=== PATIENT | male | born 1950 | race African-American/Black ===

== ENCOUNTER 2020-03-08 06:46 | Outpatient (CLI) | payer MEDICARE, OTHER ==
[2020-03-08 11:33] LABS: Bilirubin Neg (Negative); Blood, Urine Negative (Negative); Glucose, Urine (Dipstick) Normal (Negative); Ketone, Urine Negative (Negative); Leukocyte Negative (Negative); Nitrite Negative (Negative); Protein, Urine (Dipstick) 15 mg/dl (Neg-Trace); Specific Gravity, Urine 1.015 (1.002-1.036); Urobilinogen Normal mg/dL (Less than 2)
[2020-03-08 11:34] LABS: Mean Corpuscular HGB CONC 31.1 G/DL (32.0-36.0); Mean Corpuscular Hemoglobin 25.5 PG (27.0-33.0); Platelet Count 178 10x3/uL (130-400); RBC Distribution Width 14.3 % (11.5-14.5); White Blood Cell (WBC) Count 4.4 10x3/uL (4.5-11.0)
[2020-03-08 11:35] LABS: Clarity Clear (Clear)
[2020-03-08 11:39] LABS: Bacteria/HPF None Seen HPF (None Seen); RBC/HPF 0-3 HPF (0-3); Squamous Epithelial None Seen HPF (0-3); WBC/HPF None Seen HPF (0-3)
[2020-03-08 11:42] LABS: INR-International Normal Ratio 1.1; PTT 30.2 sec (22.0-33.0); Prothrombin Time 11.2 sec (9.5-12.1)
[2020-03-08 12:22] LABS: Anion Gap 13 mmol/L (10-20); BUN (Urea Nitrogen) 10 mg/dL (8.4-25.7); Calc. Creatinine Clearance 0 mL/min (70-130); Calcium 8.9 mg/dL (7.8-10.44); Carbon Dioxide 25 mmol/L (23-31); Chloride 107 mmol/L (98-107); Estimated GFR-MDRD Greater than 90; Glucose 99 mg/dL (80-115); Potassium 4.3 mmol/L (3.5-5.1); Sodium 141 mmol/L (136-145)
--- NOTE | 2020-03-08 13:18 | RAD ---
PA AND LATERAL CHEST: Date: 03/08/2020 HISTORY: Preop. FINDINGS: Heart size and mediastinum are within normal limits. Lungs are clear of infiltrates. There are mild a rthritic changes of the spine. IMPRESSION: No active intrathoracic disease. POS: AYAKA
--- NOTE | 2020-03-08 21:06 | EKG ---
Test Reason : Blood Pressure : / mmHG Vent. Rate : 054 BPM Atrial Rate : 054 BPM P-R Int : 184 ms QRS Dur : 096 ms QT Int : 382 ms P-R-T Axes : 021 052 079 degrees QTc Int : 362 ms Sinus bradycardia Nonspecific T wave abnormality Abnormal ECG No previous ECGs available Confirmed by Luis Eduardo SHERWOOD ([id number]) on 03/08/2020 9:05:54 PM Referred By: SAMMI Confirmed By:Luis Eduardo SHERWOOD
[2020-03-09 12:09] LABS: SARS-CoV-2 MS2 Positive; SARS-CoV-2 N Gene Negative; SARS-CoV-2 S Gene Negative; SARS-CoV-2 by NAA Not Detected (NotDetected); SARS-CoV-2 orf1ab Negative
== END 2020-03-08 06:47 | disposition home or self-care (01) ==
LOC: LABBT 06:46
PROVIDERS: ATTEND Urology
DX: Z01.818 Encounter for other preprocedural examination (principal); R97.20 Elevated prostate specific antigen [PSA]; N40.0 Benign prostatic hyperplasia without lower urinary tract symptoms; N52.01 Erectile dysfunction due to arterial insufficiency; I11.9 Hypertensive heart disease without heart failure; Z20.828 Contact with and (suspected) exposure to other viral communicable diseases
CPT/HCPCS: 71046; 80048; 81001; 85027; 85610; 85730; 87086; 93005; U0003; 87635; 93010

== ENCOUNTER 2020-03-11 05:45 | Day surgery (SDC) | payer MEDICARE ==
[2020-03-10 09:55] VITALS: BMI 35.2
[2020-03-11] MEDS ORDERED: cefTRIAXone\\ROCEPHIN 2 GM VIAL ONE (06:33)
[2020-03-11] MEDS ORDERED: Sodium Chloride 0.9% 100 ML ONE (06:33)
[2020-03-11] MEDS ORDERED: Lidocaine 1% (PF) 30 ML VIAL ONE (06:36)
[2020-03-11] MEDS ORDERED: PROPOFOL 40 ML ONE (06:46)
[2020-03-11] MEDS ORDERED: Fentanyl 100 MCG/2 ML VIAL ONE (06:46)
[2020-03-11] MEDS ORDERED: Lidocaine 2% PF 5 ML VIAL ONE (06:47)
--- NOTE | 2020-03-11 19:38 | OP ---
DATE OF PROCEDURE: 03/11/2020 SERVICE: Urology. PREOPERATIVE DIAGNOSIS: Elevated PSA. POSTOPERATIVE DIAGNOSES: Elevated PSA. PROCEDURE PERFORMED: MRI fusion, transrectal ultrasound-guided biopsy. INDICATIONS FOR PROCEDURE: Mr. Rosenthal is a 70-year-old black male who has history of an elevated PSA. He had undergone a previous TRUS biopsy which was negative, but his prostate was extremely large. His PSA subsequently marleny, so we performed an MRI of the prostate, which demonstrated a BI-RADS 4 lesion at the right anterior prostate. We have now elected to undergo targeted biopsies using the UroNav system. Risks and benefits were discussed and he has agreed to proceed forward. DESCRIPTION OF PROCEDURE: After identification of armband and verification of consent, patient was brought back to the operating room, where he underwent a total intravenous anesthesia. He was then left in the left lateral decubitus position and positioned for the UroNav system. A transrectal ultrasound probe was introduced at the anal verge and the fusion process was carried out in a standard fashion using the UroNav system to fuse the prostate imaging with the MRI imaging. Once 3D reconstructive models were completed, targeted biopsies were then performed x6 in the area of concern, which was at the mid gland right anterior prostate. This was done in a cross-perez fashion to try and maximize likelihood of biopsying that concerning area. Standard biopsies were then taken in the usual sextant fashion for a total of 12 biopsies in that fashion. Ultrasound measurements demonstrated a length of approximately 5.6 cm, width of approximately 6.5 cm, and height of approximately 4.7 cm for a volume of around 91 mL. Upon completion, the ultrasound probe was removed. There was only a mild amount of bleeding. The patient was returned back to the supine position, awakened, and taken to Day Stay for recovery in stable condition. COMPLICATIONS: None. ESTIMATED BLOOD LOSS: Minimal. RETAINED TUBES AND DRAINS: None. SPECIMENS: Transrectal ultrasound-guided biopsies x12 in a standard fashion, 6 for targeted lesions. DISPOSITION: Patient will be discharged home and follow up with me in approximately 1 to 2 weeks for biopsy results. Job ID: [id number]
== END 2020-03-11 11:45 | disposition home or self-care (01) ==
LOC: SDC 05:45
PROVIDERS: ATTEND Urology
PROC: 0VB03ZX Excision of Prostate, Percutaneous Approach, Diagnostic (ICD-10-PCS; principal; 2020-03-11)
DX: N40.0 Benign prostatic hyperplasia without lower urinary tract symptoms (principal); I10 Essential (primary) hypertension; E66.9 Obesity, unspecified; Z68.35 Body mass index [BMI] 35.0-35.9, adult; Z79.899 Other long term (current) drug therapy
CPT/HCPCS: 88305; J0696; J2001; J2704; J3010; J3490